=== PATIENT | female | born 1970 | race Caucasian/White ===

== ENCOUNTER → 2017-10-04 | Outpatient (CLI) | payer BC ==
--- NOTE | 2017-10-07 08:46 | ECHOF ---
Referral Reason:I10 Benign hypertension MEASUREMENTS -------- HEIGHT: 162.6 cm WEIGHT: 66.2 kg BP: 144/84 IVSd: 1.2 cm (0.6 - 1.1) LVIDd: 3.5 cm (3.9 - 5.3) LVPWd: 1.3 cm (0.6 - 1.1) IVSs: 1.5 cm LVIDs: 2.6 cm LVPWs: 1.5 cm Ao Diam: 2.9 cm (2.0 - 3.7) AV Cusp: 1.7 cm (1.5 - 2.6) LA Diam: 2.8 cm (2.7 - 3.8) MV EXCURSION: 10.022 mm (> 18.000) MV EF SLOPE: 63 mm/s (70 - 150) EPSS: 0.8 cm MV E Destin: 0.94 m/s MV DecT: 217 ms MV A [place]: 0.80 m/s MV E/A Ratio: 1.18 RAP: 5.00 mmHg RVSP: 12.42 mmHg FINDINGS -------- Sinus rhythm. This was a technically good study. The left ventricular size is normal. There is mild concentric left ventricular hypertrophy. Overa ll left ventricular systolic function is normal with, an EF between 55 - 60 %. The right ventricle is normal in size and function. The left atrium is normal in size. The right atrium is normal in size. The aortic valve is trileaflet, and appears structurally normal. No aortic stenosis or regurgitation. There is trace mitral regurgitation. Trace tricuspid regurgitation present. The right ventricular systolic pressure, as measured by Dopp ler, is 12.42mmHg. Pulmonic valve appears structurally normal. The aortic root size is normal. The pericardium is normal. CONCLUSIONS -------- 1. Sinus rhythm. 2. This was a technically good study. 3. The left ventricular size is normal. 4. There is mild concentric left ventricular hypertrophy. 5. Overall left ventricular systolic function is normal with, an EF between 55 - 60 %. 6. The right ventricle is normal in size and function. 7. The left atrium is normal in size. 8. The right atrium is normal in size. 9. The aortic valve is trileaflet, and appears structurally normal. No aortic stenosis or regurgitati on. 10. There is trace mitral regurgitation. 11. Trace tricuspid regurgitation present. 12. The right ventricular systolic pressure, as measured by Doppler, is 12.42mmHg. 13. Pulmonic valve appears structurally normal. 14. The aortic root size is normal. 15. The pericardium is normal. [employer]INE GEAR KEEPER: Rosangela Reynaga RDCS
== END | disposition home or self-care (01) ==
LOC: RADECHMAIN 08:23
PROVIDERS: ATTEND Family Medicine
DX: I51.7 Cardiomegaly (principal); I10 Essential (primary) hypertension
CPT/HCPCS: 93306

== ENCOUNTER → 2018-09-15 | Outpatient (CLI) | payer BC ==
--- NOTE | 2018-09-18 11:03 | MM ---
Reason for exam: screening (asymptomatic). Last mammogram was performed 1 year ago. History: Patient is postmenopausal. Family history of breast cancer in paternal aunt. Took hormonal contraceptives beginning at age 39. Physical Findings: A clinical breast exam by your physician is recommended on an annual basis and results should be correlated with mammographic findings. MG Screening Mammo w CAD Bilateral CC and MLO view(s) were taken. Prior study comparison: September 10, 2017, bilateral MG screening mammo w CAD. August 31, 2016, bilateral MG screening mammo w CAD. The breast tissue is heterogeneously dense. This may lower the sensitivity of mammography. There is no discrete abnormality. ASSESSMENT: Negative, BI-RAD 1 RECOMMENDATION: Routine screening mammogram of both breasts in 1 year.
== END | disposition home or self-care (01) ==
LOC: RADMAMWWP 10:50
PROVIDERS: ATTEND Family Medicine
DX: Z12.31 Encounter for screening mammogram for malignant neoplasm of breast (principal)
CPT/HCPCS: 77067

== ENCOUNTER 2019-01-27 16:52 | Emergency (ER) | payer BC ==
[2019-01-27 16:59] VITALS: BP 138/89; PULSE 87; RESP 20; TEMP 98
--- NOTE | 2019-01-27 18:59 | XR ---
PROCEDURE: XR hand complete RT - 3V DATE AND TIME: 01/27/2019 6:04 PM CLINICAL INDICATION: PHH; Pain TECHNIQUE: Department protocol COMPARISON: None FINDINGS: There is no fracture or malalignment. The soft tissues are negative for acute findings. Multifocal relatively mild osteoarthritis changes are appreciated. IMPRESSION: NO ACUTE PROCESS.
--- NOTE | 2019-01-27 19:15 | ED ---
Upper Extremity HPI - General Chief Complaint: Extremity Injury, Upper Stated Complaint: Finger injury Time Seen by Provider: 01/27/19 17:06 Source: patient Mode of arrival: ambulatory Limitations: no limitations - History of Present Illness Initial Comments: This is a 48-year-old female the ER for evaluation. Patient complains of right hand pain right knuckle pain. The right middle finger knuckle is tender to move. Patient woke up with these pain and symptoms today. No prior history of joint pain no fevers. No injury noted. Patient denies any other complaints, no erythema upper arm. MD Complaint: Injury to:: right -: hour(s) Other Extremity Injury: Fingers: Right (RMF) Other Injuries: none Handedness: right Place: home Severity scale (1-10): 6 Improves With: none Worsens With: none Context: other (none) Associated Symptoms: denies other symptoms - Related Data Previous Rx's Medication Instructions Recorded Hydrocodone/Acetaminophen [[place] 1 each PO Q6HR PRN #20 tab 11/30/15 5-325] Ondansetron Odt [Zofran ODT] 4 mg PO Q8HR PRN #10 tab 11/30/15 Tamsulosin [Flomax] 0.4 mg PO DAILY #14 cap 11/30/15 Allergies Allergy/AdvReac Type Severity Reaction Status Date / Time No Known Allergies Allergy Verified 01/27/19 16:59 Review of Systems ROS Statement: Those systems with pertinent positive or pertinent negative responses have been documented in the HPI. ROS Other: All systems not noted in ROS Statement are negative. Past Medical History Past Medical History: Hypertension History of Any Multi-Drug Resistant Organisms: None Reported Past Surgical History: No Surgical Hx Reported Past Psychological History: No Psychological Hx Reported Smoking Status: Current every day smoker Past Alcohol Use History: None Reported Past Drug Use History: None Reported General Exam Limitations: no limitations General appearance: alert, in no apparent distress Head exam: Present: atraumatic, normocephalic, normal inspection Eye exam: Present: normal appearance, PERRL, EOMI. Absent: scleral icterus, con junctival injection, periorbital swelling ENT exam: Present: normal exam, mucous membranes moist Neck exam: Present: normal inspection. Absent: tenderness, meningismus, lymphadenopathy Respiratory exam: Present: normal lung sounds bilaterally. Absent: respiratory distress, wheezes, rales, rhonchi, stridor Cardiovascular Exam: Present: regular rate, normal rhythm, normal heart sounds. Absent: systolic murmur, diastolic murmur, rubs, gallop, clicks GI/Abdominal exam: Present: soft, normal bowel sounds. Absent: distended, tenderness, guarding, rebound, rigid Extremities exam: Present: normal inspection, full ROM, normal capillary refill, other (Right middle finger knuckle tenderness). Absent: tenderness, pedal edema, joint swelling, calf tenderness Back exam: Present: normal inspection Neurological exam: Present: alert, oriented X3, CN II-XII intact Psychiatric exam: Present: normal affect, normal mood Skin exam: Present: warm, dry, intact, normal color. Absent: rash Course Vital Signs 01/27/19 16:56 Temperature 98 F Pulse Rate 87 Respiratory 20 Rate Blood Pressure 138/89 O2 Sat by Pulse 99 Oximetry - Reevaluation(s) Reevaluation #1: 01/27/19 19:14 Medical record reviewed Reevaluation #2: 01/27/19 19:14 Patient's in no acute distress, does have range of motion, encouraged Motrin Tylenol, return to ER of redness or erythema continues to develop or spread up right hand, or if patient has any decreased range of motion Medical Decision Making - Medical Decision Making 48 female the ER for evaluation. Patient presents today for evaluation regards to right middle finger, right middle knuckle pain. Some tenderness. No erythema no fever no erythema 3 no joint x-rays negative. Patient has good range of motion good vascular flow. Patient will continue Motrin Tylenol for pain - Radiology Data Radiology results: report reviewed (X-ray right hand negative for acute disease), image reviewed Disposition Clinical Impression: Pain of right middle finger Disposition: HOME SELF-CARE Condition: Good Instructions (If sedation given, give patient instructions): Arthralgia (ED) Is patient prescribed a controlled substance at d/c from ED?: No Referrals: Venancio Muniz MD [Primary Care Provider] - 1-2 days
== END 2019-01-27 19:29 | disposition home or self-care (01) ==
LOC: EC 16:52
DX: M79.644 Pain in right finger(s) (principal); M79.641 Pain in right hand; F17.200 Nicotine dependence, unspecified, uncomplicated
CPT/HCPCS: 99283

== ENCOUNTER 2019-04-20 12:10 | Emergency (ER) | payer BC ==
[2019-04-20 12:33] VITALS: BP 129/77; PULSE 94; RESP 18; TEMP 98.3
[2019-04-20 13:34] LABS: Appearance,Urine Clear (Clear); Bilirubin,Urine Negative (Negative); Blood,Urine Moderate (Negative); Color,Urine Yellow; Glucose,Urine (UA) Negative (Negative); Ketones,Urine Negative (Negative); Leukocyte Esterase,Urine Moderate (Negative); Mucus,Urine Rare /hpf; Nitrite,Urine Negative (Negative); Protein,Urine Negative (Negative); RBC,Urine 9 /hpf (0-5); Specific Gravity,Urine 1.011 (1.001-1.035); Squamous Epithelial Cell,Urine 1 /hpf (0-4); Urobilinogen,Urine <2.0 mg/dL (<2.0); WBC,Urine 18 /hpf (0-5)
[2019-04-20] MEDS ORDERED: SODIUM CHLORIDE 0.9% 1,000 ML IV STA (14:41)
[2019-04-20] MEDS ORDERED: KETOROLAC 30 MG/ML 1 ML VIAL IVP STA (14:41)
--- NOTE | 2019-04-20 14:43 | ED ---
General Adult HPI - General Chief complaint: Abdominal Pain Stated complaint: poss kidney stones Time Seen by Provider: 04/20/19 14:21 Source: patient Mode of arrival: wheelchair - History of Present Illness Initial comments: Dictation was produced using [employer] dictation software. please excuse any grammatical, word or spelling errors. Chief Complaint: 48-year-old female presents with right-sided flank pain. History of Present Illness: 48-year-old female she has past medical history of nephrolithiasis. Patient's been having flank pain for the last 2 days. She was seen by her primary care doctor who is treating her for urinary tract infection. Patient started on ciprofloxacin yesterday. She states that her pain acutely worsened. Patient has a history of kidney stones. Back and 2015 she was diagnosed with kidney stones. They're found to be small. Patient states that her pain today is like the pain she received had back then. Mild nausea no vomiting. No urinary symptoms. No constitutional symptoms. The ROS documented in this emergency department record has been reviewed and confirmed by me. Those systems with pertinent positive or negative responses have been documented in the HPI. All other systems are other negative and/or noncontributory. PHYSICAL EXAM: General Impression: Alert and oriented x3, not in acute distress HEENT: Normocephalic atraumatic, extra-ocular movements intact, pupils equal and reactive to light bilaterally, mucous membranes moist. Cardiovascular: Heart regular rate and rhythm, S1&S2 audible, no murmurs, rubs or gallops Chest: Lungs clear to auscultation bilaterally, no rhonchi, no wheeze, no rales Abdomen: Bowel sounds present, abdomen soft, non-tender, non-distended, no organomegaly Musculoskeletal: Pulses present and equal in all extremities, no peripheral edema Motor: no focal deficits noted Neurological: CN II-XII grossly intact, no focal motor or sensory deficits noted Skin: Intact with no visualized rashes Psych: Normal affect and mood ED course: 44-year-old female past medical history of kidney stones presents with right-sided flank pain. His upon arrival are within acceptable limits. Laboratory evaluation obtained. CBC, metabolic panel, urinalysis was obtained. Urinalysis shows 18 white blood cells and 9 rbc's. Patient is currently taking ciprofloxacin. Patient reports that her symptoms are identical to this in that she's had when she was diagnosed with a left nephrolithiasis with mild obstruction. Ultrasound was obtained showing mild fullness to the anterior mid cortex of the left kidney. Radiology recommended CT of the abdomen to look for left kidney neoplasm. Patient is notified of the results she is told that she needs to follow-up with PCP or urologist for assessment of left kidney fullness in the ultrasound. Patient reevaluated after intravenous fluids and IV analgesia. She does appear well with dramatically improved symptoms. Patient clear for discharge. She is understandable and agreeable to discharge. She reports that she will follow up with PCP. Patient told to take [id number] analgesia for pain. She is told to maintain good hydration. - Related Data Home Medications Medication Instructions Recorded Confirmed Ciprofloxacin HCl [Cipro] 500 mg PO Q12HR 04/20/19 04/20/19 FLUoxetine HCL [PROzac] 20 mg PO DAILY 04/20/19 04/20/19 Hydrochlorothiazide 25 mg PO DAILY 04/20/19 04/20/19 Previous Rx's Medication Instructions Recorded Ketorolac [Toradol] 10 mg PO Q6HR PRN #12 tab 04/20/19 Allergies Allergy/AdvReac Type Severity Reaction Status Date / Time bacitracin Allergy Rash/Hives Verified 04/20/19 14:51 [From Neosporin ([id number])] neomycin Allergy Rash/Hives Verified 04/20/19 14:51 [From Neosporin ([id number])] polymyxin B Allergy Rash/Hives Verified 04/20/19 14:51 [From Neosporin ([id number])] Review of Systems ROS Statement: Those systems with pertinent positive or pertinent negative responses have been documented in the HPI. ROS Other: All systems not noted in ROS Statement are negative. Past Medical History Past Medical History: Hypertension Additional Past Medical History / Comment(s): kidney stones History of Any Multi-Drug Resistant Organisms: None Reported Past Surgical History: Orthopedic Surgery Additional Past Surgical History / Comment(s): left arm, left leg and left foot Past Psychological History: No Psychological Hx Reported Smoking Status: Current every day smoker Past Alcohol Use History: None Reported Past Drug Use History: None Reported Course Vital Signs 04/20/19 12:30 Temperature 98.3 F Pulse Rate 94 Respiratory 18 Rate Blood Pressure 129/77 O2 Sat by Pulse 98 Oximetry Medical Decision Making - Lab Data Result diagrams: 04/20/19 14:42 04/20/19 14:42 Lab Results 04/20/19 04/20/19 04/20/19 Range/Units 12:58 14:42 14:42 WBC 10.1 (3.8-10.6) k/uL RBC 4.73 (3.80-5.40) m/uL Hgb 14.2 (11.4-16.0) gm/dL Hct 44.0 (34.0-46.0) % MCV 93.0 (80.0-100.0) fL MCH 30.0 (25.0-35.0) pg MCHC 32.3 (31.0-37.0) g/dL RDW 12.6 (11.5-15.5) % Plt Count 228 (150-450) k/uL Neutrophils % 77 % Lymphocytes % 16 % Monocytes % 5 % Eosinophils % 1 % Basophils % 0 % Neutrophils # 7.7 (1.3-7.7) k/uL Lymphocytes # 1.6 (1.0-4.8) k/uL Monocytes # 0.5 (0-1.0) k/uL Eosinophils # 0.1 (0-0.7) k/uL Basophils # 0.0 (0-0.2) k/uL Sodium 141 (137-145) mmol/L Potassium 3.9 (3.5-5.1) mmol/L Chloride 106 (98-107) mmol/L Carbon Dioxide 25 (22-30) mmol/L Anion Gap 10 mmol/L BUN 14 (7-17) mg/dL Creatinine 0.76 (0.52-1.04) mg/dL Est GFR (CKD-EPI)AfAm >90 (>60 ml/min/1.73 sqM) Est GFR (CKD-EPI)NonAf >90 (>60 ml/min/1.73 sqM) Glucose 90 (74-99) mg/dL Calcium 9.8 (8.4-10.2) mg/dL Urine Color Yellow Urine Appearance Clear (Clear) Urine pH 7.0 (5.0-8.0) Ur Specific [place] 1.011 (1.001-1.035) Urine Protein Negative (Negative) Urine Glucose (UA) Negative (Negative) Urine Ketones Negative (Negative) Urine Blood Moderate H (Negative) Urine Nitrite Negative (Negative) Urine Bilirubin Negative (Negative) Urine Urobilinogen <2.0 (<2.0) mg/dL Ur Leukocyte Esterase Moderate H (Negative) Urine RBC 9 H (0-5) /hpf Urine WBC 18 H (0-5) /hpf Ur Squamous Epith Cells 1 (0-4) /hpf Urine Mucus Rare H (None) /hpf Disposition Clinical Impression: Flank pain Disposition: HOME SELF-CARE Condition: Good Instructions (If sedation given, give patient instructions): Kidney Stones (ED) Additional Instructions: left kidney fullness seen on ultrasound. follow up with Urologist for outpatient work up regarding ultrasound findings and kidney stone Prescriptions: Ketorolac [Toradol] 10 mg PO Q6HR PRN #12 tab PRN Reason: Pain Is patient prescribed a controlled substance at d/c from ED?: No Referrals: Venancio Muniz MD [Primary Care Provider] - 1-2 days Time of Disposition: 16:19
[2019-04-20 14:50] LABS: Basophils % (A) 0 %; Eosinophils # (A) 0.1 k/uL (0-0.7); Eosinophils % (A) 1 %; HGB 14.2 gm/dL (11.4-16.0); Lymphocytes # (A) 1.6 k/uL (1.0-4.8); Lymphocytes % (A) 16 %; MCHC 32.3 g/dL (31.0-37.0); Mean Platelet Volume 6.6; Monocytes # (A) 0.5 k/uL (0-1.0); Monocytes % (A) 5 %; Neutrophils # (A) 7.7 k/uL (1.3-7.7); Neutrophils % (A) 77 %; Platelet Count 228 k/uL (150-450); RBC 4.73 m/uL (3.80-5.40); RDW 12.6 % (11.5-15.5); WBC 10.1 k/uL (3.8-10.6)
[2019-04-20 14:58] LABS: African American GFR (CKD) >90 (>60 ml/min/1.73 sqM); Anion Gap 10 mmol/L; Blood Urea Nitrogen 14 mg/dL (7-17); Calcium 9.8 mg/dL (8.4-10.2); Carbon Dioxide 25 mmol/L (22-30); Chloride 106 mmol/L (98-107); Glucose 90 mg/dL (74-99); Non-African American GFR(CKD) >90 (>60 ml/min/1.73 sqM); Potassium 3.9 mmol/L (3.5-5.1); Sodium 141 mmol/L (137-145)
--- NOTE | 2019-04-20 15:48 | US ---
EXAMINATION TYPE: US kidneys/renal and bladder DATE OF EXAM: 04/20/2019 COMPARISON: NONE CLINICAL HISTORY: Pain. rt flank pain, microscopic hematuria EXAM MEASUREMENTS: Right Kidney: 9.2 x 4.8 x 5.4 cm Left Kidney: 9.4 x 4.5 x 5.2 cm Right Kidney: No hydronephrosis or masses seen Left Kidney: No hydronephrosis or masses seen Bladder: wnl Bilateral Jets seen: yes There is mild fullness in the anterior mid cortex left kidney. IMPRESSION: CT of the abdomen is recommended to assess the left kidney to exclude neoplasm.
== END 2019-04-20 16:43 | disposition home or self-care (01) ==
LOC: EC 12:10
DX: R10.9 Unspecified abdominal pain (principal); R93.422 Abnormal radiologic findings on diagnostic imaging of left kidney; N39.0 Urinary tract infection, site not specified; R11.0 Nausea; I10 Essential (primary) hypertension; F17.200 Nicotine dependence, unspecified, uncomplicated; Z88.1 Allergy status to other antibiotic agents; Z79.899 Other long term (current) drug therapy; Z87.442 Personal history of urinary calculi
CPT/HCPCS: 99284; 96374; 96361; 36415; 80048; 85025; 81001; 87086; 76770; J1885

== ENCOUNTER → 2019-04-29 | Outpatient (CLI) | payer BC ==
--- NOTE | 2019-04-29 08:19 | CT ---
EXAMINATION TYPE: CT abdomen pelvis wo con DATE OF EXAM: 04/29/2019 COMPARISON: 12/10/2015 HISTORY: Abdominal pain CT DLP: 726 mGycm Automated exposure control for dose reduction was used. TECHNIQUE: Helical acquisition of images was performed from the lung bases through the pelvis. FINDINGS: LUNG BASES: Minimal bibasilar subsegmental dependent atelectasis. LIVER/GB: Innumerable hepatic cysts and other lesions that are too small to accurately characterize. Numerous hepatic lesions were also seen in the prior of 12/10/2015. The largest currently measures 1.8 cm in anterior posterior dimension and previously measured 1.4 cm. Multiple others appear to have in creased in size PANCREAS: No significant abnormality is seen. No ductal dilatation. SPLEEN: No splenomegaly. ADRENALS: No significant abnormality is seen. KIDNEYS: No hydronephrosis or nephrolithiasis. URINARY BLADDER: No significant abnormality is seen. ADENOPATHY: No greater than 1 cm short axis lymph node in the abdomen or pelvis. OSSEOUS STRUCTURES: Multilevel degenerative disc disease. BOWEL: Questionable bowel wall thickening of the sigmoid colon in a long segment, although likely re lated to incomplete distention. Appendix is air-filled and within normal limits. Terminal ileum is in completely distended. No dilated large or small bowel. OTHER: Left para-aortic bilobed retroperitoneal lesion measures 3.9 cm in size in craniocaudal dimens ion and 1.8 cm in transverse dimension, very slightly smaller than the prior of 12/10/2015 where this measured 3.9 x 2.0 cm. This is best seen on coronal series 5 image 41. Moderate atherosclerosis of the abdominal aorta and its branches. IMPRESSION: 1. SIGMOID COLON HAS THE APPEARANCE OF MINIMAL BOWEL WALL THICKENING THAT COULD RELATE TO ACUTE UNCOM PLICATED LONG SEGMENT COLITIS OR INCOMPLETE DISTENTION. CORRELATE WITH CLINICAL SYMPTOMS. 2. INCREASE IN SIZE OF MULTIPLE HEPATIC CYSTIC LESIONS. MRI WITH CONTRAST (LIVER MASS PROTOCOL) IS RE COMMENDED TO EVALUATE FOR ANY ABNORMAL ENHANCEMENT OF THE CYSTIC LESIONS THAT WOULD BE CONCERNING FOR CYSTIC/NECROTIC METASTASIS IS PRESENT. 3. RETROPERITONEAL CYSTIC MASS THAT IS SLIGHTLY SMALLER THAN THE PRIOR OF 2015. CONSIDERATIONS ARE FO R SMALLER NECROTIC ADENOPATHY, CHRONIC PSEUDOCYST, OR POSSIBLY ENTERIC DUPLICATION CYST.
== END | disposition home or self-care (01) ==
LOC: RADCTMAIN 07:20
PROVIDERS: ATTEND Family Medicine
DX: K76.89 Other specified diseases of liver (principal); R59.9 Enlarged lymph nodes, unspecified
CPT/HCPCS: 74176

== ENCOUNTER → 2019-05-14 | Outpatient (CLI) | payer BC ==
--- NOTE | 2019-05-15 01:23 | MR ---
EXAMINATION TYPE: MR liver wo/w con DATE OF EXAM: 05/14/2019 COMPARISON: CT scan abdomen pelvis 04/29/2019 HISTORY: Multiple liver cysts. CONTRAST: Standard multiplanar, multisequence MRI departmental protocol utilizing 6.5 mL intravenous gadolinium contrast. FINDINGS: The T2 images show numerous cysts of variable size throughout the liver. These measure up t o 2 cm. I see no evidence of a solid liver mass. Mild ducts are not dilated. Gallbladder appears norm al. Spleen appears normal. There is no evidence of pancreatic mass. Pancreatic duct is not dilated. T here is no adrenal mass. Kidneys show normal size and contour. There is no hydronephrosis. Ureters ar e not dilated. There is no pathologic liver enhancement. Kidneys show satisfactory contrast opacifica tion. There is 2 cm cystic fluid collection in the retroperitoneum posterior to the left renal artery and vein without enhancement. This could be old necrotic lymph node. I see no retroperitoneal adenop athy. There is no sign of pleural effusion. There is no ascites. IMPRESSION: Numerous hepatic cysts. No suspicious liver findings. No evidence of solid liver mass. Retroperitoneal cystic fluid collection on the left side could be a necrotic lymph node. Abdomen unchanged compared to recent CT scan.
== END | disposition home or self-care (01) ==
LOC: RADMRIMAIN 07:01
PROVIDERS: ATTEND Nurse Practitioner Adult Health
DX: K76.89 Other specified diseases of liver (principal); K66.8 Other specified disorders of peritoneum
CPT/HCPCS: 74183; A9585

== ENCOUNTER → 2019-06-17 | Outpatient (CLI) | payer BC ==
--- NOTE | 2019-06-17 10:05 | US ---
EXAMINATION TYPE: US renal artery duplex complete DATE OF EXAM: 06/17/2019 COMPARISON: NONE CLINICAL HISTORY: I10 Hypertension. HTN for 1 year, controlled with medication MEASUREMENTS: RENAL SIZE: Rt Kidney: 9.4 x 4.3 x 4.7cm Lt Kidney: 9.6 x 4.7 x 4.4cm RESISTANCE INDEX Right: 0.58 Left: 0.56 RA/AO RATIO (< 3.5 ) Right: 1.2 Left: 1.2 RA VELOCITY ( < 180 cm/s) Right: 111.8cm/s Left: 112.2cm/s Technical limitations due to overlying bowel content. Aorta and kidneys appears unremarkable. No evid ence of renal artery stenosis at this time as visualized. Low resistive waveforms noted throughout Grayscale, color Doppler, spectral Doppler imaging performed. Triphasic waveform noted within the abd ominal aorta. Brisk systolic upstroke noted within the renal arteries, segmental arteries bilaterally . IMPRESSION: No evident renal artery stenosis.
== END | disposition home or self-care (01) ==
LOC: RADUSWWP 07:46
PROVIDERS: ATTEND Family Medicine
DX: I10 Essential (primary) hypertension (principal)
CPT/HCPCS: 93975

== ENCOUNTER 2020-04-20 08:48 | Day surgery (SDC) | payer BC ==
[2020-04-18 09:07] VITALS: BMI 26.1
[~2020-04-20 08:48] MED LIST: LACTATED RINGERS 1,000 ML IV SCH
[2020-04-20] MEDS ORDERED: LIDOCAINE 1% (10MG/ML) FOR IV START INTRADERMA ONE (09:20)
[2020-04-20 09:25] VITALS: TEMP 97
[2020-04-20] MEDS ORDERED: PROPOFOL 10 MG/ML 20 ML VIAL IV ONE (10:07)
--- NOTE | 2020-04-20 10:21 | P.PCN ---
Date of Procedure: 04/20/20 Procedure(s) Performed: BRIEF HISTORY: Patient is a pleasant 49-year-old pleasant white female scheduled for an elective colonoscopy as a part of screening for colon cancer. PROCEDURE PERFORMED: Colonoscopy with biopsy PREOPERATIVE DIAGNOSIS: Screening for colon cancer. IV sedation per Anesthesia. PROCEDURE: After informed consent was obtained, the patient, was brought into the endoscopy unit. IV sedation was administered by Anesthesia under continuous monitoring. Digital rectal examination was normal. Initially the Olympus CF-160 flexible video colonoscope was then inserted in the rectum, gradually advanced into the cecum without any difficulty. Careful examination was performed as the scope was gradually being withdrawn. Ileocecal valve and the appendiceal orifice were visualized and appeared normal. Prep was excellent. Mucosa of the cecum, ascending colon, transverse colon, appeared normal. The descending colon there was a 3-4 mm sessile polyp that was removed by cold biopsy. Rest of the descending colon, sigmoid colon, and rectum appeared normal. Retroflexion was performed in the rectum and no lesions were seen. The patient tolerated the procedure well. IMPRESSION: 3-4 mm sessile descending colon polyp status post removal by cold biopsy Rest of the colon appeared normal RECOMMENDATIONS: Findings of this examination were discussed with the patient as well as a family. She was advised to follow with the biopsy results. If the biopsy shows an adenoma she can have a repeat colonoscopy in 5 years
[2020-04-20 10:31] VITALS: RESP 16
[2020-04-20 10:46] VITALS: BP 111/71; PULSE 59
== END 2020-04-20 10:58 | disposition home or self-care (01) ==
LOC: ORWHC2ENDO 08:48
PROVIDERS: ATTEND Internal Medicine Gastroenterology
DX: Z12.11 Encounter for screening for malignant neoplasm of colon (principal); D12.4 Benign neoplasm of descending colon; I10 Essential (primary) hypertension; E78.5 Hyperlipidemia, unspecified; F32.9 Major depressive disorder, single episode, unspecified; F17.200 Nicotine dependence, unspecified, uncomplicated; Z88.1 Allergy status to other antibiotic agents; Z79.899 Other long term (current) drug therapy; Z98.890 Other specified postprocedural states; Z90.710 Acquired absence of both cervix and uterus
CPT/HCPCS: 88305; 45380; J2704

== ENCOUNTER 2021-11-18 15:48 | Emergency (ER) | payer BC ==
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
[2021-11-18 17:08] LABS: Basophils % (A) 0 %; Eosinophils # (A) 0.1 k/uL (0-0.7); Eosinophils % (A) 2 %; HCT 41.1 % (34.0-46.0); HGB 13.9 gm/dL (11.4-16.0); Lymphocytes # (A) 1.9 k/uL (1.0-4.8); Lymphocytes % (A) 31 %; MCH 31.8 pg (25.0-35.0); MCHC 33.9 g/dL (31.0-37.0); MCV 93.7 fL (80.0-100.0); Mean Platelet Volume 6.8; Monocytes # (A) 0.3 k/uL (0-1.0); Monocytes % (A) 4 %; Neutrophils # (A) 3.8 k/uL (1.3-7.7); Neutrophils % (A) 62 %; Platelet Count 246 k/uL (150-450); RBC 4.39 m/uL (3.80-5.40); RDW 12.8 % (11.5-15.5); WBC 6.2 k/uL (3.8-10.6)
[2021-11-18] MEDS: MAG HYDROX/AL HYDROX/SIMETH 30 ML, HYOSCYAMINE ELIXIR 10 ML, LIDOCAINE VISCOUS 2% 10 ML PO STA ×3 (17:13)
[2021-11-18] MEDS: SODIUM CHLORIDE 0.9% 500 ML 500 ML IV STA (17:14)
[2021-11-18 17:19] VITALS: BP 124/83; PULSE 65; RESP 12; TEMP 98.7
[2021-11-18 17:29] LABS: ALT 15 U/L (4-34); AST 27 U/L (14-36); African American GFR (CKD) >90 (>60 ml/min/1.73 sqM); Albumin 4.1 g/dL (3.5-5.0); Alkaline Phosphatase 83 U/L (38-126); Amylase 43 U/L (30-110); Anion Gap 10 mmol/L; Blood Urea Nitrogen 16 mg/dL (7-17); C Reactive Protein 0.7 mg/dL (<1.0); Calcium 8.9 mg/dL (8.4-10.2); Carbon Dioxide 25 mmol/L (22-30); Chloride 102 mmol/L (98-107); Glucose 92 mg/dL (74-99); Lipase 120 U/L (23-300); Non-African American GFR(CKD) 90 (>60 ml/min/1.73 sqM); Sodium 137 mmol/L (137-145); Total Bilirubin 0.6 mg/dL (0.2-1.3); Total Protein 7.1 g/dL (6.3-8.2)
[2021-11-18 17:38] LABS: Appearance,Urine Clear (Clear); Bilirubin,Urine Negative (Negative); Blood,Urine Moderate (Negative); Color,Urine Yellow; Glucose,Urine (UA) Negative (Negative); Hyaline Casts,Urine 1 /lpf (0-2); Ketones,Urine Negative (Negative); Leukocyte Esterase,Urine Negative (Negative); Mucus,Urine Rare /hpf; Nitrite,Urine Negative (Negative); PH, Urine 6.5 (5.0-8.0); Protein,Urine Negative (Negative); RBC,Urine 15 /hpf (0-5); Specific Gravity,Urine 1.018 (1.001-1.035); Squamous Epithelial Cell,Urine 3 /hpf (0-4); Urobilinogen,Urine <2.0 mg/dL (<2.0); WBC,Urine 1 /hpf (0-5)
[2021-11-18 17:54] LABS: Erythrocyte Sedimentation Rate 17 mm/hr (0-20)
--- NOTE | 2021-11-18 18:27 | CT ---
EXAMINATION TYPE: CT abdomen pelvis w con DATE OF EXAM: 11/18/2021 HISTORY: RUQ/epigastric pain CT DLP: 920.8mGycm Automated Exposure Control for Dose Reduction was Utilized. CONTRAST: CT scan of the abdomen and pelvis is performed with IV Contrast, patient injected with 100 mL of Isov ue 300. COMPARISON: 04/29/2019 FINDINGS: LUNG BASES: No significant abnormality is appreciated. INCLUDED CARDIAC STRUCTURES: There is no cardiomegaly or pericardial effusion. LIVER: Diffuse low attenuating lesions in the liver, increased in number and size in the interval. GALLBLADDER : Contracted gallbladder. BILIARY TREE: No abnormal biliary tree dilation. PANCREAS: No significant abnormality is seen. SPLEEN: No significant abnormality is seen. ADRENALS: No significant abnormality is seen. KIDNEYS AND URETERS: No significant abnormality is seen. URINARY BLADDER: No significant abnormality is appreciated. GI SYSTEM: No intestinal obstruction. There is no evidence for acute appendicitis. Sigmoid diverticul osis, no findings of acute diverticulitis. UTERUS/ADNEXA: Nonvisualized uterus. Adnexa appear within normal. PERITONEUM/MESENTRY: No pneumoperitoneum or ascites. LYMPH NODES: 1.6 cm left para-aortic soft tissue low attenuating lesion, small prior. MAJOR VASCULAR STRUCTURES: Aorta is nonaneurysmal. There are soft and calcific plaques in the abdomin al aorta. OSSEOUS STRUCTURES: No acute fracture or dislocation. Mild L5-S1 narrowing. Mild facet joint arthropa thy in the lower lumbar spine. Soft tissue: No significant soft tissue swelling. IMPRESSION: 1. Diffuse low attenuating lesions in the liver, increased in size and number. Some of which are like ly reflective of hepatic cysts as demonstrated on MRI dated 05/14/2019, exclude other etiologies of th jagruti lesions. Recommend correlation with repeat MRI of the liver-liver mass protocol. 2. Left periaortic low attenuating soft tissue mass slightly smaller in size measuring up to 1.6 cm p reviously measured 2.2 cm. Unknown significance. 3. No free air, intestinal obstruction or free fluid in the abdomen.
== END 2021-11-18 19:30 | disposition home or self-care (01) ==
LOC: EC 15:48
DX: R10.9 Unspecified abdominal pain (principal); I10 Essential (primary) hypertension; F17.200 Nicotine dependence, unspecified, uncomplicated
CPT/HCPCS: 36415; 93005; 80053; 85652; 82150; 83605; 83690; 84484; 85025; 86140; 81001; 74177; 99284; 96360; 96361; Q9967

== ENCOUNTER 2021-11-27 12:30 | Emergency (ER) | payer BC ==
[2021-11-27] MEDS ORDERED: HYDROmorphone 0.5 MG/0.5 ML SYRINGE IVP STA (13:32)
[2021-11-27] MEDS ORDERED: METOCLOPRAMIDE 5 MG/ML 2 ML VIAL IVP STA (13:32)
[2021-11-27] MEDS ORDERED: diphenhydrAMINE 50 MG/ML 1 ML VIAL IVP STA (13:32)
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
[2021-11-27 13:39] VITALS: BP 133/71; TEMP 97.9
[2021-11-27 13:51] LABS: Basophils % (A) 1 %; Eosinophils # (A) 0.1 k/uL (0-0.7); Eosinophils % (A) 2 %; HCT 42.5 % (34.0-46.0); HGB 14.2 gm/dL (11.4-16.0); Lymphocytes # (A) 1.6 k/uL (1.0-4.8); Lymphocytes % (A) 28 %; MCH 31.6 pg (25.0-35.0); MCHC 33.5 g/dL (31.0-37.0); MCV 94.3 fL (80.0-100.0); Mean Platelet Volume 6.7; Monocytes # (A) 0.2 k/uL (0-1.0); Monocytes % (A) 4 %; Neutrophils # (A) 3.7 k/uL (1.3-7.7); Neutrophils % (A) 64 %; Platelet Count 237 k/uL (150-450); RDW 12.4 % (11.5-15.5); WBC 5.7 k/uL (3.8-10.6)
[2021-11-27 14:04] LABS: ALT 14 U/L (4-34); AST 25 U/L (14-36); African American GFR (CKD) >90 (>60 ml/min/1.73 sqM); Albumin 4.3 g/dL (3.5-5.0); Alkaline Phosphatase 77 U/L (38-126); Amylase 47 U/L (30-110); Anion Gap 7 mmol/L; Blood Urea Nitrogen 15 mg/dL (7-17); Calcium 9.1 mg/dL (8.4-10.2); Carbon Dioxide 24 mmol/L (22-30); Chloride 105 mmol/L (98-107); Glucose 90 mg/dL (74-99); Lipase 91 U/L (23-300); Non-African American GFR(CKD) >90 (>60 ml/min/1.73 sqM); Sodium 136 mmol/L (137-145); Total Bilirubin 0.7 mg/dL (0.2-1.3); Total Protein 7.7 g/dL (6.3-8.2)
[2021-11-27] MEDS ORDERED: ACET/COD 300 MG/30 MG STARTER PACK 6 TAB BTL PO STA (15:08)
[2021-11-27 15:34] VITALS: PULSE 97; RESP 14
== END 2021-11-27 15:35 | disposition home or self-care (01) ==
LOC: EC 12:30
DX: R10.11 Right upper quadrant pain (principal); R11.2 Nausea with vomiting, unspecified; I10 Essential (primary) hypertension; F17.200 Nicotine dependence, unspecified, uncomplicated; Z88.1 Allergy status to other antibiotic agents; Z87.442 Personal history of urinary calculi; Z90.710 Acquired absence of both cervix and uterus
CPT/HCPCS: 99284; 96374; 96375 ×2; 80053; 82150; 83605; 83690; 85025; J1200; J2765; J1170

== ENCOUNTER → 2021-12-01 | Outpatient (CLI) | payer BC ==
--- NOTE | 2021-12-03 08:01 | MR ---
MRI liver with and without contrast. HISTORY: Follow-up liver masses. Comparison: MRI liver dated 05/12/2019. TECHNIQUE: Multiecho multiplanar images liver were obtained with and without contrast. Delayed postco ntrast images were obtained. FINDINGS: There are innumerable well-circumscribed lesions within the liver with fluid intensity based on T2-we ighted imaging. There is no contrast-enhancement within the lesions in the lesions are consistent wit h hepatic cysts. There is no definite change in number compared to the previous. No new solid liver m asses are seen. There is no mass or organomegaly involving the pancreas, spleen or adrenal glands. The kidneys excrete contrast promptly and symmetrically and there is no solid renal mass or hydroneph rosis. There is a small simple cortical cyst of left kidney. Caliber of the abdominal aorta is normal and there is no evidence of aneurysm, retroperitoneal adenop athy or hemorrhage. The visualized bowel loops are normal in caliber and there is no inflammatory change in the bowel wal l or mesentery. There is no free intraperitoneal fluid. IMPRESSION: Innumerable cystic masses within the liver unchanged compared to the prior study. There is no suspici ous enhancing solid liver lesion.
== END | disposition home or self-care (01) ==
LOC: RADMRIMAIN 06:29
PROVIDERS: ATTEND Nurse Practitioner Adult Health
DX: K76.89 Other specified diseases of liver (principal)
CPT/HCPCS: 74183; A9585

== ENCOUNTER → 2021-12-04 | Outpatient (CLI) | payer BC ==
--- NOTE | 2021-12-04 10:09 | NM ---
EXAMINATION TYPE: NM hepatobiliary w EF DATE OF EXAM: 12/04/2021 COMPARISON: MR liver 12/01/2021, CT abdomen 11/18/2021 HISTORY: Left upper quadrant pain, R 10.12, abdomen pain TECHNIQUE: After the intravenous administration of 4.97 mCi Tc 99m Mebrofenin hepatobiliary scintigra phy is performed. Immediate images post injection. FINDINGS: Procedure done somewhat off protocol due to patient's necessity to use the restroom. There is satisfactory initial accumulation of tracer by the liver. The gallbladder is visualized wit hin 20 minutes. The small bowel activity is noted on delayed images. At one hour 8 ounces of oral e nsure plus is given to mimic CCK and gallbladder ejection fraction is calculated at 77 %, in the norm al range. Therefore there is no scintigraphic evidence of cystic or common bile duct obstruction to suggest acute cholecystitis or gallbladder dyskinesia. IMPRESSION: Exam is within normal limits.
== END | disposition home or self-care (01) ==
LOC: RADNMMAIN 06:41
PROVIDERS: ATTEND Family Medicine
DX: R10.12 Left upper quadrant pain (principal)
CPT/HCPCS: 78226; A9537

== ENCOUNTER 2022-01-10 09:13 | Day surgery (SDC) | payer BC ==
[2022-01-08 15:14] VITALS: BMI 26.4
[2022-01-10 09:34] VITALS: TEMP 99
[2022-01-10] MEDS: LACTATED RINGERS 1,000 ML IV SCH ×2 (09:49→10:25)
[2022-01-10] MEDS ORDERED: LIDOCAINE 1% (10MG/ML) FOR IV START INTRADERMA ONE (09:50)
[2022-01-10] MEDS ORDERED: PROPOFOL 10 MG/ML 20 ML VIAL IV ONE (10:27)
--- NOTE | 2022-01-10 10:44 | P.PCN ---
Date of Procedure: 01/10/22 Procedure(s) Performed: BRIEF HISTORY: Patient is a 51-year-old, pleasant, white female scheduled for an upper endoscopy as a part of evaluation of severe epigastric pain and heartburn for the last several months duration.. PROCEDURE PERFORMED: Esophagogastroduodenoscopy with biopsy. PREOPERATIVE DIAGNOSIS: Epigastric pain/heartburn of several months. IV sedation per anesthesia. PROCEDURE: After informed consent was obtained, the patient was brought into the endoscopy unit. IV sedation was administered by Anesthesia under continuous monitoring. Initially the Olympus GIF-140 video endoscope was inserted into the mouth. Esophagus intubated without any difficulty. It was gradually advanced into the stomach and duodenum and carefully examined. The bulb and the second part of the duodenum appeared normal. The scope at this time was withdrawn to the stomach, adequately insufflated with air, and upon careful examination, mucosa of the antrum, diffuse gastritis and biopsies were done from this area. The body, cardia and the fundus appeared normal. The scope was then withdrawn into the esophagus. Small hiatal hernia The GE junction was located at 39 cm from the incisors. There were linear erosions in the distal esophagus consistent with LA grade B reflux esophagitis. Rest of the esophagus appeared normal and the patient tolerated the procedure well. IMPRESSION: 1. Antral erosive gastritis. 2. Linear erosions in the distal esophagus consistent with LA grade B reflux esophagitis 3. Small sliding type hiatal hernia.. RECOMMENDATIONS: The findings of this examination were discussed with the patient as well as his family. She was advised to follow with the biopsy results. She'll be started on Prilosec 20 mg twice daily to be taken half hour before breakfast and dinnertime and follow antireflux measures. She'll be seen in office in 3 months..
[2022-01-10 11:20] VITALS: BP 114/68; PULSE 68; RESP 20
== END 2022-01-10 11:26 | disposition home or self-care (01) ==
LOC: ORWHC2ENDO 09:13
PROVIDERS: ATTEND Internal Medicine Gastroenterology
DX: K29.70 Gastritis, unspecified, without bleeding (principal); K22.10 Ulcer of esophagus without bleeding; K31.9 Disease of stomach and duodenum, unspecified; K21.9 Gastro-esophageal reflux disease without esophagitis; K44.9 Diaphragmatic hernia without obstruction or gangrene; I10 Essential (primary) hypertension; F17.210 Nicotine dependence, cigarettes, uncomplicated; H91.90 Unspecified hearing loss, unspecified ear; Z79.899 Other long term (current) drug therapy; Z88.1 Allergy status to other antibiotic agents; Z87.442 Personal history of urinary calculi
CPT/HCPCS: 88305; 43239; J2704